=== PATIENT | female | born 1945 | race Caucasian/White ===

== ENCOUNTER 2020-05-22 16:21 | Emergency (ER) | payer OTHER, BC ==
[2020-05-22 17:03] VITALS: BMI 38.9
[2020-05-22] MEDS ORDERED: LACTATED RINGERS SOLUTION 1000 ML INFUS.BAG IV ONE (17:11)
[2020-05-22 18:13] LABS: BASO % 0.5 % (0-2.0); EOS % 1.4 % (0-4.5); HEMATOCRIT 37.1 % (32.4-45.2); HEMOGLOBIN 11.8 GM/dL (10.7-15.3); LYMPH % 26.3 % (8-40); MCH 28.1 pg (25.7-33.7); MCHC 31.9 g/dl (32.0-36.0); MEAN CELL VOLUME 88.2 fl (80-96); MEAN PLT VOLUME 10.6 fl (7.5-11.1); MONO % 6.9 % (3.8-10.2); NEUT % 64.9 % (42.8-82.8); PLATELET COUNT 229 K/MM3 (134-434); RDW 21.2 % (11.6-15.6); WHITE BLOOD COUNT 6.5 K/mm3 (4.0-10.0)
[2020-05-22 18:19] LABS: VENOUS BASE EXCESS 1.3 mmol/L (-2-2); VENOUS O2 SATURATION 62.8 % (70-80); VENOUS PCO2 46.3 mmHg (38-52); VENOUS PH 7.381 (7.310-7.410)
[2020-05-22 18:21] LABS: INR 1.01 (0.83-1.09); PROTHROMBIN TIME (PATIENT) 12.4 SEC (9.7-13.0)
[2020-05-22 18:23] LABS: ACTIVATED PTT 25.3 SECONDS (25.2-36.5)
[2020-05-22 18:39] LABS: CHLORIDE 106 mmol/L (98-107); POTASSIUM 3.3 mmol/L (3.5-5.1); SODIUM 141 mmol/L (136-145)
[2020-05-22 18:42] LABS: CALCIUM 9.7 mg/dL (8.5-10.1)
[2020-05-22 18:43] LABS: ALBUMIN 3.8 g/dl (3.4-5.0); ANION GAP 9 MMOL/L (8-16); BLOOD UREA NITROGEN 8.9 mg/dL (7-18); CO2 26 mmol/L (21-32); GLUCOSE,RANDOM 80 mg/dL (74-106)
[2020-05-22 18:44] LABS: PHOSPHOROUS 3.6 mg/dL (2.5-4.9)
[2020-05-22 18:45] LABS: CREATININE 0.8 mg/dL (0.55-1.3); SGOT/AST 9 U/L (15-37); SGPT/ALT < 6 U/L (13-61)
[2020-05-22 18:46] LABS: BILIRUBIN,TOTAL 0.3 mg/dL (0.2-1); TOT PROT 6.5 g/dl (6.4-8.2)
[2020-05-22 18:49] LABS: ALK PHOS 118 U/L (45-117)
[2020-05-22] MEDS ORDERED: ACETAMINOPHEN 325 MG TABLET (FP) PO ONE (18:55)
[2020-05-22 20:34] LABS: ANISOCYTOSIS 0; MACROCYTOSIS 0; PLATELET ESTIMATE NORMAL; ROULEAU 1+
[2020-05-22 21:34] VITALS: BP 117/76; PULSE 62; TEMP 98.3
== END 2020-05-22 21:54 ==
LOC: JER 16:21
DX: R07.9 Chest pain, unspecified (principal)
CPT/HCPCS: 36415; 71045-TC-FY; 80053; 82550; 82803; 83605; 83735; 84100; 84484; 85025; 85610; 85730; 87040; 87899; 93005; 93010; 99285-25; C9803; U0003

== ENCOUNTER 2021-05-11 20:06 | Inpatient (IN) | payer BC, OTHER ==
[2021-05-11 20:19] VITALS: BMI 27.4
[2021-05-11 22:14] LABS: BASO % 0.4 % (0-2.0); EOS % 2.5 % (0-4.5); HEMATOCRIT 32.2 % (32.4-45.2); HEMOGLOBIN 10.4 GM/dL (10.7-15.3); LYMPH % 17.5 % (8-40); MCHC 32.2 g/dl (32.0-36.0); MEAN CELL VOLUME 86.7 fl (80-96); MEAN PLT VOLUME 10.5 fl (7.5-11.1); MONO % 7.5 % (3.8-10.2); NEUT % 72.1 % (42.8-82.8); PLATELET COUNT 256 10^3/uL (134-434); RBC 3.71 M/mm3 (3.60-5.2); RDW 17.9 % (11.6-15.6); WHITE BLOOD COUNT 10.9 K/mm3 (4.0-10.0)
[2021-05-11 22:50] LABS: CHLORIDE 109 mmol/L (98-107); SODIUM 142 mmol/L (136-145)
[2021-05-11 22:53] LABS: ALBUMIN 3.2 g/dl (3.4-5.0); ANION GAP 6 MMOL/L (8-16); BLOOD UREA NITROGEN 18.6 mg/dL (7-18); CALCIUM 9.6 mg/dL (8.5-10.1); CO2 27 mmol/L (21-32); GLUCOSE,RANDOM 133 mg/dL (74-106)
[2021-05-11 22:57] LABS: CREATININE 0.8 mg/dL (0.55-1.3); SGOT/AST 22 U/L (15-37)
[2021-05-11 22:58] LABS: BILIRUBIN,TOTAL 0.2 mg/dL (0.2-1); TOT PROT 6.7 g/dl (6.4-8.2)
[2021-05-11 22:59] LABS: ALK PHOS 101 U/L (45-117)
[2021-05-11 23:17] LABS: SGPT/ALT 31 U/L (13-61)
[2021-05-12 00:55] LABS: EPI CELLS 1 /uL (0-25.1); HYALINE CASTS 3 /uL (0-3.1); URINE APPEARANCE CLEAR; URINE BACTERIA 7674 /uL (0-1359); URINE BILIRUBIN NEGATIVE (NEGATIVE); URINE COLOR YELLOW; URINE GLUCOSE (UA) NEGATIVE (NEGATIVE); URINE KETONE NEGATIVE (NEGATIVE); URINE LEUK ESTERASE 3+ (NEGATIVE); URINE NITRITE NEGATIVE (NEGATIVE); URINE PROTEIN NEGATIVE (NEGATIVE); URINE RBC 5 /uL (0-23.9); URINE UROBILINOGEN 0.2 mg/dL (0.2-1.0); URINE WBC 456 /uL (0-25.8)
[2021-05-12] MEDS ORDERED: VANCOMYCIN 1 GM in D5W (PRE-DOCKED) 1,000 MG/250 ML IVPB ONE (00:57)
[2021-05-12] MEDS ORDERED: PIPERACILLIN/TAZOB 2.25 GM 2.25 GM in DEXTROSE 5%-WATER - 50 ML IVPB ONE (00:57)
[2021-05-12] MEDS ORDERED: VANCOMYCIN 1 GRAM (PRE-DOCKED) 1,000 MG/250 ML BAG IVPB ONE ×2 (01:04→12:58)
[2021-05-12] MEDS ORDERED: PIPERACILLIN/TAZOB 2.25 GM 2.25 GM/50 ML BAG IVPB ONE (01:04)
[2021-05-12] MEDS ORDERED: POLYETHYLENE GLYCOL (HEALTHYLAX) 3350 17 GM PACKET PO PRN (03:29)
[2021-05-12] MEDS ORDERED: ACETAMINOPHEN 500 MG TABLET (FP) PO PRN (03:39)
[2021-05-12] MEDS ORDERED: CARBIDOPA/LEVODOPA 25/100 TABLET (FP) ONE ×3 (06:10→22:45)
[2021-05-12] MEDS: CARBIDOPA/LEVODOPA 25/100 TABLET (FP) PO SCH ×3 (06:19→23:00)
[2021-05-12] MEDS ORDERED: LISINOPRIL 5 MG TABLET ONE (07:45)
[2021-05-12] MEDS ORDERED: ENOXAPARIN NA (PORCINE) 40 MG/0.4 ML DISP.SYRIN SQ ONE (07:45)
[2021-05-12] MEDS ORDERED: PANTOPRAZOLE 20 MG TABLET PO ONE (07:45)
[2021-05-12] MEDS ORDERED: PIPERACILLIN/TAZOB 3.375 GM 3.375 GM/50 ML BAG IVPB ONE (07:46)
[2021-05-12 08:34] LABS: BASO % 0.5 % (0-2.0); EOS % 3.4 % (0-4.5); HEMATOCRIT 30.9 % (32.4-45.2); HEMOGLOBIN 9.9 GM/dL (10.7-15.3); LYMPH % 15.8 % (8-40); MCH 28.2 pg (25.7-33.7); MEAN CELL VOLUME 88.2 fl (80-96); MEAN PLT VOLUME 11.1 fl (7.5-11.1); MONO % 8.9 % (3.8-10.2); NEUT % 71.4 % (42.8-82.8); PLATELET COUNT 148 10^3/uL (134-434); RDW 17.7 % (11.6-15.6); WHITE BLOOD COUNT 8.5 K/mm3 (4.0-10.0)
[2021-05-12 08:40] LABS: INR 0.99 (0.83-1.09); PROTHROMBIN TIME (PATIENT) 11.1 SEC (9.7-13.0)
[2021-05-12 08:46] LABS: CHLORIDE 112 mmol/L (98-107); SODIUM 143 mmol/L (136-145)
[2021-05-12 08:56] LABS: CALCIUM 9.4 mg/dL (8.5-10.1)
[2021-05-12 08:57] LABS: ANION GAP 6 MMOL/L (8-16); BLOOD UREA NITROGEN 13.8 mg/dL (7-18); CO2 25 mmol/L (21-32); GLUCOSE,RANDOM 104 mg/dL (74-106)
[2021-05-12 09:00] LABS: CREATININE 0.7 mg/dL (0.55-1.3)
[2021-05-12] MEDS: ENOXAPARIN NA (PORCINE) 40 MG/0.4 ML DISP.SYRIN SQ SCH (09:34)
[2021-05-12] MEDS: PIPERACILLIN/TAZOB 3.375 GM 3.375 GM in DEXTROSE 5%-WATER - 50 ML IVPB SCH (09:34)
[2021-05-12] MEDS: PANTOPRAZOLE 20 MG TABLET PO SCH (09:35)
[2021-05-12] MEDS: LISINOPRIL 10 MG TABLET PO SCH (09:35)
[2021-05-12 10:00] LABS: ACTIVATED PTT 17.8 SECONDS (25.2-36.5)
[2021-05-12] MEDS ORDERED: VITAMIN D3 50000 UNIT PO SCH (10:00)
[2021-05-12] MEDS ORDERED: VANCOMYCIN 1 GM in D5W (PRE-DOCKED) 1,000 MG/250 ML IVPB SCH (13:00)
[2021-05-12] MEDS ORDERED: MELATONIN 5 MG TABLETS ONE (22:44)
[2021-05-12] MEDS ORDERED: QUEtiapine FUMARATE 25 MG TABLET ONE (22:45)
[2021-05-12] MEDS: QUEtiapine FUMARATE 25 MG TABLET PO SCH (23:00)
[2021-05-12] MEDS: MELATONIN 5 MG TABLETS PO SCH (23:00)
[2021-05-13] MEDS ORDERED: PIPERACILLIN/TAZOB 3.375 GM 3.375 GM/50 ML BAG IVPB ONE ×3 (01:47→21:23)
[2021-05-13] MEDS: PIPERACILLIN/TAZOB 3.375 GM 3.375 GM in DEXTROSE 5%-WATER - 50 ML IVPB SCH ×3 (02:28→21:44)
[2021-05-13] MEDS ORDERED: CARBIDOPA/LEVODOPA 25/100 TABLET (FP) ONE ×3 (07:06→22:18)
[2021-05-13] MEDS: CARBIDOPA/LEVODOPA 25/100 TABLET (FP) PO SCH ×3 (07:08→22:08)
[2021-05-13 08:21] LABS: BASO % 0.5 % (0-2.0); EOS % 3.7 % (0-4.5); HEMATOCRIT 33.1 % (32.4-45.2); HEMOGLOBIN 10.6 GM/dL (10.7-15.3); LYMPH % 14.5 % (8-40); MCH 27.9 pg (25.7-33.7); MEAN CELL VOLUME 87.3 fl (80-96); MEAN PLT VOLUME 10.4 fl (7.5-11.1); MONO % 7.4 % (3.8-10.2); NEUT % 73.9 % (42.8-82.8); PLATELET COUNT 246 10^3/uL (134-434); RBC 3.79 M/mm3 (3.60-5.2); RDW 17.8 % (11.6-15.6); WHITE BLOOD COUNT 9.4 K/mm3 (4.0-10.0)
[2021-05-13 08:39] LABS: ALBUMIN 3.3 g/dl (3.4-5.0); BLOOD UREA NITROGEN 17.3 mg/dL (7-18); CALCIUM 9.5 mg/dL (8.5-10.1)
[2021-05-13 08:42] LABS: CREATININE 0.7 mg/dL (0.55-1.3)
[2021-05-13 08:44] LABS: BILIRUBIN,TOTAL 0.3 mg/dL (0.2-1); TOT PROT 6.6 g/dl (6.4-8.2)
[2021-05-13] MEDS ORDERED: PIPERACILLIN/TAZOB 3.375 GM 3.375 GM in DEXTROSE 5%-WATER - 50 ML IVPB SCH (09:00)
[2021-05-13] MEDS ORDERED: VANCOMYCIN 1 GM in D5W (PRE-DOCKED) 1,000 MG/250 ML IVPB SCH (13:00)
[2021-05-13] MEDS ORDERED: clonazePAM 0.5 MG ODT TABLETS SL SCH (14:15)
[2021-05-13] MEDS ORDERED: PANTOPRAZOLE 20 MG TABLET PO ONE (14:21)
[2021-05-13] MEDS ORDERED: LISINOPRIL 5 MG TABLET ONE (14:21)
[2021-05-13] MEDS ORDERED: CEFTRIAXONE 1 GM/50 ML BAG ONE (14:22)
[2021-05-13] MEDS ORDERED: QUEtiapine FUMARATE 25 MG TABLET ONE (14:22)
[2021-05-13] MEDS: LISINOPRIL 10 MG TABLET PO SCH (14:43)
[2021-05-13] MEDS: ENOXAPARIN NA (PORCINE) 40 MG/0.4 ML DISP.SYRIN SQ SCH (14:43)
[2021-05-13] MEDS: PANTOPRAZOLE 20 MG TABLET PO SCH (14:43)
[2021-05-13] MEDS: CEFTRIAXONE 1 GM in DEXTROSE 5%-WATER - 50 ML IVPB SCH (14:43)
[2021-05-13] MEDS: QUEtiapine FUMARATE 25 MG TABLET PO SCH (14:43)
[2021-05-13] MEDS ORDERED: MELATONIN 5 MG TABLETS ONE (21:22)
[2021-05-13] MEDS ORDERED: clonazePAM 0.5 MG TABLET ONE (21:23)
[2021-05-13] MEDS: clonazePAM 0.5 MG TABLET PO SCH ×2 (21:45→22:09)
[2021-05-13] MEDS: MELATONIN 5 MG TABLETS PO SCH (22:03)
[2021-05-14] MEDS ORDERED: CARBIDOPA/LEVODOPA 25/100 TABLET (FP) ONE (06:15)
[2021-05-14] MEDS ORDERED: clonazePAM 0.5 MG TABLET ONE ×2 (06:15→14:23)
[2021-05-14] MEDS: clonazePAM 0.5 MG TABLET PO SCH ×3 (06:18→21:30)
[2021-05-14] MEDS: CARBIDOPA/LEVODOPA 25/100 TABLET (FP) PO SCH ×3 (06:18→21:30)
[2021-05-14] MEDS: LISINOPRIL 10 MG TABLET PO SCH (10:01)
[2021-05-14] MEDS: ENOXAPARIN NA (PORCINE) 40 MG/0.4 ML DISP.SYRIN SQ SCH (10:01)
[2021-05-14] MEDS: PANTOPRAZOLE 20 MG TABLET PO SCH (10:01)
[2021-05-14] MEDS: CEFTRIAXONE 1 GM in DEXTROSE 5%-WATER - 50 ML IVPB SCH (10:02)
[2021-05-14] MEDS ORDERED: PANTOPRAZOLE 20 MG TABLET PO ONE (10:03)
[2021-05-14] MEDS ORDERED: CEFTRIAXONE 1 GM/50 ML BAG ONE (10:03)
[2021-05-14] MEDS ORDERED: LISINOPRIL 5 MG TABLET ONE (10:03)
[2021-05-14] MEDS ORDERED: ENOXAPARIN NA (PORCINE) 40 MG/0.4 ML DISP.SYRIN SQ ONE (10:03)
[2021-05-14] MEDS: MELATONIN 5 MG TABLETS PO SCH (21:30)
[2021-05-15] MEDS: clonazePAM 0.5 MG TABLET PO SCH ×3 (06:38→21:08)
[2021-05-15] MEDS: CARBIDOPA/LEVODOPA 25/100 TABLET (FP) PO SCH ×3 (06:38→21:08)
[2021-05-15] MEDS ORDERED: DEXTROSE 5%-WATER - 50 ML IVPB ONE (10:18)
[2021-05-15] MEDS ORDERED: cefTRIAXone SODIUM 1 GM VIAL ONE (10:18)
[2021-05-15] MEDS: ENOXAPARIN NA (PORCINE) 40 MG/0.4 ML DISP.SYRIN SQ SCH (10:36)
[2021-05-15] MEDS: LISINOPRIL 10 MG TABLET PO SCH (10:36)
[2021-05-15] MEDS: PANTOPRAZOLE 20 MG TABLET PO SCH (10:36)
[2021-05-15] MEDS: CEFTRIAXONE 1 GM in DEXTROSE 5%-WATER - 50 ML IVPB SCH (10:36)
[2021-05-15] MEDS: MELATONIN 5 MG TABLETS PO SCH (21:08)
[2021-05-16] MEDS: CARBIDOPA/LEVODOPA 25/100 TABLET (FP) PO SCH ×2 (06:06→13:08)
[2021-05-16] MEDS: clonazePAM 0.5 MG TABLET PO SCH ×2 (06:06→13:08)
[2021-05-16] MEDS ORDERED: cefTRIAXone SODIUM 1 GM VIAL ONE (09:45)
[2021-05-16] MEDS ORDERED: DEXTROSE 5%-WATER - 50 ML IVPB ONE (09:45)
[2021-05-16] MEDS: CEFTRIAXONE 1 GM in DEXTROSE 5%-WATER - 50 ML IVPB SCH (09:59)
[2021-05-16] MEDS: LISINOPRIL 10 MG TABLET PO SCH (09:59)
[2021-05-16] MEDS: PANTOPRAZOLE 20 MG TABLET PO SCH (09:59)
[2021-05-16] MEDS: ENOXAPARIN NA (PORCINE) 40 MG/0.4 ML DISP.SYRIN SQ SCH (09:59)
[2021-05-16 14:14] VITALS: BP 128/57; PULSE 79; TEMP 98.3
== END 2021-05-16 19:15 | DRG 689 ==
LOC: JER 20:06 → JERBED 23:53 → J6S 05-14 15:01
PROVIDERS: ATTEND Family Medicine
DX: N39.0 Urinary tract infection, site not specified (principal); G92.8 Other toxic encephalopathy; J18.9 Pneumonia, unspecified organism; F03.91 Unspecified dementia, unspecified severity, with behavioral disturbance; T42.4X5A Adverse effect of benzodiazepines, initial encounter; G20 Parkinson's disease; K21.9 Gastro-esophageal reflux disease without esophagitis; M35.00 Sjogren syndrome, unspecified; I10 Essential (primary) hypertension; B96.4 Proteus (mirabilis) (morganii) as the cause of diseases classified elsewhere; Y92.89 Other specified places as the place of occurrence of the external cause
CPT/HCPCS: 36415; 70450-TC; 71045-TC-FY; 71250-TC; 72100-TC-FY; 72125-TC; 72170-TC-FY; 80048; 80053; 81003; 82550; 82607; 84443; 84484; 85025; 85610; 85730; 86780; 87086; 87186; 93005; 93010; 97116-GP; 97162-GP; 99285-25; C9803; U0003; U0005